=== PATIENT | female | born 1980 | race African-American/Black ===

== ENCOUNTER 2016-07-24 01:53 | Emergency (ER) | payer OTHER ==
[~2016-07-24 01:53] MED LIST: ALBU18HF IH; AMOX500T PO; AZIT500T PO; CYCL-331 PO; LOSA1TAB18 PO; OMEP20TA63 PO; OSEL75CA PO; PHEN100T82 PO; PRED50TA PO; SERT50TA PO; SULF1TAB24 PO; TRAM-48 PO
--- NOTE | 2016-07-24 02:13 | ED.ADGEN ---
Past History Past Medical History: GERD, Other Past Surgical History: Other Smoking: Less than 1pk/day Alcohol Use: Heavy Drug Use: None Adult General Chief Complaint Chief Complaint sore throat, urinary frequency HPI HPI Patient is a 35 year old and [place] female who presents with multiple complaints and she states that she started having a sore throat earlier today, mild headache, so dysuria, and she is worried she might be . She denies any vaginal bleeding or discharge, she denies any hematuria. She denies any neck stiffness. She states she's had a stuffy nose over the last few days. She feels like she's been having a fever on and off. She denies any nuchal rigidity , confusion. She states her throat was bothering her the worse. Review of Systems Review of Systems Constitutional: Denies fever or chills [] Eyes: Denies change in visual acuity, redness, or eye pain [] HENT: Positive for nasal congestion and sore throat [] Respiratory: Denies cough or shortness of breath [] Cardiovascular: No additional information not addressed in HPI [] GI: Denies abdominal pain, nausea, vomiting, bloody stools or diarrhea [] : Denies dysuria or hematuria [] Musculoskeletal: Denies back pain or joint pain [] Integument: Denies rash or skin lesions [] Neurologic: Positive for headache, denies any focal weakness or sensory changes [] Endocrine: Denies polyuria or polydipsia [] Current Medications Current Medications Current Medications Medications (Trade) Dose Ordered Sig/Kalli Start Time Stop Time Status Last Admin Dose Admin Throat Lozenges (Chloraseptic) 1 spray PRN Q2HR PRN 07/24/16 03:30 07/24/16 03:51 DC 07/24/16 03:48 1 SPRAY Tramadol HCl (Starter Pack - Ultram) 1 startpack 1X ONCE 07/24/16 03:00 07/24/16 03:02 DC 07/24/16 03:00 1 STARTPACK Allergies Allergies Allergies Coded Allergies Type Severity Reaction Last Updated Verified ibuprofen Allergy Intermediate 03/01/16 Yes Physical Exam Physical Exam Constitutional: Well developed, well nourished, no acute distress, non-toxic appearance. [] HENT: Normocephalic, atraumatic, bilateral external ears normal, oropharynx moist, no oral exudates, nose normal. [] Eyes: PERRLA, EOMI, conjunctiva normal, no discharge. [] Neck: Normal range of motion, no tenderness, supple, no stridor. [] Cardiovascular:Heart rate regular rhythm, no murmur [] Lungs & Thorax: Bilateral breath sounds clear to auscultation [] Abdomen: Bowel sounds normal, soft, no tenderness, no masses, no pulsatile masses. [] Skin: Warm, dry, no erythema, no rash. [] Back: No tenderness, no CVA tenderness. [] Extremities: No tenderness, no cyanosis, no clubbing, ROM intact, no edema. [] Neurologic: Alert and oriented X 3, normal motor function, normal sensory function, no focal deficits noted. [] Psychologic: Affect normal, judgement normal, mood normal. [] Current Patient Data Vital Signs Vital Signs Date Time Temp Pulse Resp B/P (MAP) Pulse Ox O2 Delivery O2 Flow Rate FiO2 07/24/16 03:30 20 100 Room Air 07/24/16 02:29 98.9 109 Lab Results Laboratory Tests Test 07/24/16 02:00 07/24/16 02:19 07/24/16 02:20 Urine Collection Type Unknown Urine Color Yellow Urine Clarity Clear Urine pH 6.0 Urine Specific [place] 1.025 Urine Protein Trace (NEG-TRACE) Urine Glucose (UA) Neg mg/dL (NEG) Urine Ketones (Stick) Neg mg/dL (NEG) Urine Blood Mod (NEG) Urine Nitrite Neg (NEG) Urine Bilirubin Neg (NEG) Urine Urobilinogen Dipstick 2 mg/dL (0.2 mg/dL) Urine Leukocyte Esterase Trace (NEG) Urine RBC 0 /HPF (0-2) Urine WBC 1-4 /HPF (0-4) Urine Squamous Epithelial Cells Mod /LPF Urine Bacteria Few /HPF (0-FEW) Urine Opiates Screen Neg (NEG) Urine Methadone Screen Neg (NEG) Urine Barbiturates Neg (NEG) Urine Phencyclidine Screen Neg (NEG) Urine Amphetamine/Methamphetamine Neg (NEG) Urine Benzodiazepines Screen Neg (NEG) Urine Cocaine Screen Pos (NEG) Urine Cannabinoids Screen Neg (NEG) Urine Ethyl Alcohol neg (NEG) POC Urine HCG, Qualitative hcg negative (Negative) Group A Streptococcus Rapid Negative (NEGATIVE) EKG EKG [] Radiology/Procedures Radiology/Procedures [] Course & Med Decision Making Course & Med Decision Making Pertinent Labs and Imaging studies reviewed. (See chart for details) Strep throat, UA and previous he test all negative. She does not have a fever or tachycardia. She was given tramadol and chloraseptic spray for her throat. She is instructed return ER if she has neck stiffness, high fevers, confusion, sore throat where she can't swallow, change in her voice, or other concerns. She is agreeable to plan of being discharged in stable condition. Final Impression Final Impression Sore throat Headache Viral syndrome Problems: Dragon Disclaimer Dragon Disclaimer This electronic medical record was generated, in whole or in part, using a voice recognition dictation system. STEFF PAT MD Jul 24, 2016 02:13
[2016-07-24 02:29] VITALS: BP 162/89
[2016-07-24 02:44] LABS: BILIRUBIN,URINE NEG (NEG); CLARITY,URINE CLEAR; COLOR,URINE YELLOW; GLUCOSE,URINE NEG (NEG); NITRITE,URINE NEG (NEG); UROBILINOGEN,URINE 2 mg/dL (0.2 mg/dL)
[2016-07-24 02:45] LABS: BACTERIA,URINE FEW /HPF (0-FEW); RBC,URINE 0 /HPF (0-2); SQUAMOUS EPITHELIAL CELL,UR MOD /LPF
[2016-07-24] MEDS ORDERED: START PACK - traMADol 1 STARTPACK TABLET PO ONE (03:00)
[2016-07-24 03:06] LABS: BARBITURATES NEG (NEG); BENZODIAZEPINES NEG (NEG); CANNABINOIDS NEG (NEG); COCAINE POS (NEG); METHADONE NEG (NEG); OPIATES NEG (NEG); PHENCYCLIDINE NEG (NEG)
[2016-07-24 03:14] LABS: AMPHETAMINE/METHAMPHETAMINE NEG (NEG)
[2016-07-24] MEDS ORDERED: PHENOL ORAL SPRAY 177ML BOTTLE. PO PRN (03:30)
== END 2016-07-24 03:30 | disposition home or self-care (01) ==
LOC: ER 01:53
DX: B34.9 Viral infection, unspecified (principal); K21.9 Gastro-esophageal reflux disease without esophagitis; F17.200 Nicotine dependence, unspecified, uncomplicated; F10.10 Alcohol abuse, uncomplicated; Z88.6 Allergy status to analgesic agent
CPT/HCPCS: 36415; 80305; 80320; 81001; 81025; 87070; 87086; 87880; 99284; G0481

== ENCOUNTER 2016-12-28 17:20 | Emergency (ER) | payer OTHER ==
[~2016-12-28] VITALS: Ht 170.2 cm; Wt 97.5 kg
[~2016-12-28 17:20] MED LIST changes: -LOSA1TAB18 PO; +LOSA1TAB25 PO
[2016-12-28 17:33] VITALS: BP 141/85
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
[2016-12-28] MEDS ORDERED: DOXY100C2 PO (18:50)
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
== END 2016-12-28 18:52 | disposition home or self-care (01) ==
LOC: ER 17:20
DX: G89.18 Other acute postprocedural pain (principal); R07.89 Other chest pain; I10 Essential (primary) hypertension; J90 Pleural effusion, not elsewhere classified; F17.200 Nicotine dependence, unspecified, uncomplicated; Z98.890 Other specified postprocedural states; Z88.6 Allergy status to analgesic agent
CPT/HCPCS: 71020; 99284

== ENCOUNTER 2017-02-13 06:24 | Emergency (ER) | payer OTHER ==
[~2017-02-13] VITALS: Ht 170.2 cm; Wt 97.8 kg
[2017-02-13 06:24] VITALS: BP 122/73
[~2017-02-13 06:24] MED LIST changes: +DOXY100C2 PO
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
== END 2017-02-13 06:45 | disposition home or self-care (01) ==
LOC: ER 06:24
DX: L03.311 Cellulitis of abdominal wall (principal); I10 Essential (primary) hypertension; F17.200 Nicotine dependence, unspecified, uncomplicated
CPT/HCPCS: 99283

== ENCOUNTER 2017-07-09 21:20 | Emergency (ER) | payer OTHER ==
[~2017-07-09] VITALS: Ht 170.2 cm; Wt 106.6 kg
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
[2017-07-09 23:10] LABS: BASO % 0 % (0-3); EOS # 0.1 x10^3/uL (0.0-0.7); EOS % 1 % (0-3); HEMATOCRIT 33.8 % (36.0-47.0); HEMOGLOBIN 10.8 g/dL (12.0-15.5); LYMPH # 3.5 x10^3/uL (1.0-4.8); LYMPH % 36 % (24-48); MEAN CORPUSCULAR HEMOGLOBIN 25 pg (25-35); MEAN CORPUSCULAR HGB CONC 32 g/dL (31-37); MEAN CORPUSCULAR VOLUME 79 fL (79-100); MONO # 0.5 x10^3/uL (0.0-1.1); MONO % 6 % (0-9); NEUT # 5.5 x10^3uL (1.8-7.7); NEUT % 57 % (31-73); PLATELET COUNT 316 x10^3/uL (140-400); RED BLOOD COUNT 4.25 x10^6/uL (3.50-5.40); RED CELL DISTRIBUTION WIDTH 18.3 % (11.5-14.5); WHITE BLOOD COUNT 9.7 x10^3/uL (4.0-11.0)
[2017-07-09 23:24] LABS: ALBUMIN/GLOBULIN RATIO 0.8 (1.0-1.7); CALCIUM 8.1 mg/dL (8.5-10.1); CREATININE 0.9 mg/dL (0.6-1.0); GFR 84.8; POTASSIUM 3.9 mmol/L (3.5-5.1); TOTAL BILIRUBIN 0.4 mg/dL (0.2-1.0); TOTAL PROTEIN 6.9 g/dL (6.4-8.2)
[2017-07-09 23:27] LABS: BACTERIA,URINE 0 /HPF (0-FEW); BILIRUBIN,URINE NEG (NEG); CLARITY,URINE CLEAR; COLOR,URINE YELLOW; GLUCOSE,URINE NEG (NEG); NITRITE,URINE NEG (NEG); RBC,URINE 20-40 /HPF (0-2); SQUAMOUS EPITHELIAL CELL,UR FEW /LPF; UROBILINOGEN,URINE 1 mg/dL (0.2 mg/dL); WBC,URINE OCC /HPF (0-4)
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
[2017-07-09] MEDS ORDERED: HYDR-971 PO (23:44)
[2017-07-10 00:11] VITALS: BP 116/85
== END 2017-07-10 00:14 | disposition home or self-care (01) ==
LOC: ER 21:20
DX: R10.13 Epigastric pain (principal); R10.11 Right upper quadrant pain; R11.2 Nausea with vomiting, unspecified; K21.9 Gastro-esophageal reflux disease without esophagitis; I10 Essential (primary) hypertension; F17.200 Nicotine dependence, unspecified, uncomplicated
CPT/HCPCS: 36415; 74021; 80053; 81001; 85025; 99285-25

== ENCOUNTER 2018-01-05 16:11 | Emergency (ER) | payer OTHER ==
[~2018-01-05] VITALS: Ht 170.2 cm; Wt 40.0 kg
[~2018-01-05 16:11] MED LIST changes: +HYDR-3165 PO
[2018-01-05] MEDS ORDERED: ASPIRIN 81 MG TAB.CHEW ONE (16:17)
[2018-01-05 16:36] VITALS: BP 151/80
[2018-01-05] MEDS ORDERED: ASPIRIN 81 MG TAB.CHEW PO ONE (17:00)
[2018-01-05 17:03] LABS: BASO % 0 % (0-3); EOS # 0.1 x10^3/uL (0.0-0.7); EOS % 1 % (0-3); HEMOGLOBIN 11.9 g/dL (12.0-15.5); LYMPH # 2.8 x10^3/uL (1.0-4.8); LYMPH % 28 % (24-48); MEAN CORPUSCULAR HEMOGLOBIN 24 pg (25-35); MEAN CORPUSCULAR HGB CONC 31 g/dL (31-37); MEAN CORPUSCULAR VOLUME 76 fL (79-100); MONO # 0.7 x10^3/uL (0.0-1.1); MONO % 7 % (0-9); NEUT # 6.4 x10^3uL (1.8-7.7); NEUT % 64 % (31-73); PLATELET COUNT 357 x10^3/uL (140-400); RED BLOOD COUNT 4.99 x10^6/uL (3.50-5.40); RED CELL DISTRIBUTION WIDTH 19.9 % (11.5-14.5); WHITE BLOOD COUNT 10.1 x10^3/uL (4.0-11.0)
[2018-01-05 17:13] LABS: ALBUMIN 3.4 g/dL (3.4-5.0); ALBUMIN/GLOBULIN RATIO 0.8 (1.0-1.7); CALCIUM 8.4 mg/dL (8.5-10.1); CREATININE 0.9 mg/dL (0.6-1.0); GFR 84.3; MAGNESIUM 2.2 mg/dL (1.8-2.4); TOTAL BILIRUBIN 0.7 mg/dL (0.2-1.0); TOTAL PROTEIN 7.9 g/dL (6.4-8.2)
[2018-01-05 17:15] LABS: POTASSIUM 2.9 mmol/L (3.5-5.1)
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
[2018-01-05] MEDS ORDERED: POTASSIUM CHLORIDE 20 MEQ/15 ML ORAL LIQUID. PO ONE (17:30)
[2018-01-05] MEDS ORDERED: CLON0.5T11 PO (17:50)
== END 2018-01-05 18:00 | disposition home or self-care (01) ==
LOC: ER 16:11
DX: R07.89 Other chest pain (principal); E87.6 Hypokalemia; F41.9 Anxiety disorder, unspecified; R25.2 Cramp and spasm; K21.9 Gastro-esophageal reflux disease without esophagitis; I10 Essential (primary) hypertension; F17.200 Nicotine dependence, unspecified, uncomplicated
CPT/HCPCS: 36415; 71045; 80053; 83735; 84484; 85025; 99285

== ENCOUNTER 2019-01-12 16:10 | Emergency (ER) | payer MEDICAID, OTHER ==
[~2019-01-12 16:10] MED LIST changes: -ALBU18HF IH; +ALBU2.5V8 IH; +CLON0.5T4 PO
[2019-01-12] MEDS ORDERED: LIDO15SO2 MM (17:25)
[2019-01-12] MEDS ORDERED: NYST1000 PO (17:25)
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
[2019-01-12] MEDS ORDERED: FLUCONAZOLE 100 MG TABLET. PO ONE (17:30)
[2019-01-12 17:33] VITALS: BP 122/64
== END 2019-01-12 17:38 | disposition home or self-care (01) ==
LOC: ER 16:10
DX: B37.0 Candidal stomatitis (principal); K21.9 Gastro-esophageal reflux disease without esophagitis; I10 Essential (primary) hypertension; F17.200 Nicotine dependence, unspecified, uncomplicated
CPT/HCPCS: 99283

== ENCOUNTER 2019-12-17 11:04 | Emergency (ER) | payer MEDICAID ==
[~2019-12-17] VITALS: Ht 167.6 cm; Wt 113.6 kg
[~2019-12-17 11:04] MED LIST changes: +LIDO20SO10 MM; +NYST1000 PO
[2019-12-17 11:06] VITALS: BP 133/93
[2019-12-17] MEDS ORDERED: AZITHROMYCIN 250 MG TABLET. PO ONE (12:15)
[2019-12-17] MEDS ORDERED: ACETAMINOPHEN 325 MG TABLET PO ONE (12:15)
[2019-12-17] MEDS ORDERED: cefTRIAXone IM 250 MG VIAL IM ONE (12:15)
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
[2019-12-17 12:25] LABS: CLARITY,URINE HAZY; COLOR,URINE YELLOW
[2019-12-17 12:26] LABS: BILIRUBIN,URINE NEG (NEG); GLUCOSE,URINE NEG (NEG)
[2019-12-17 12:27] LABS: BACTERIA,URINE FEW /HPF (0-FEW); NITRITE,URINE NEG (NEG); SQUAMOUS EPITHELIAL CELL,UR MOD /LPF
== END 2019-12-17 12:35 | disposition home or self-care (01) ==
LOC: ER 11:04
DX: Z20.2 Contact with and (suspected) exposure to infections with a predominantly sexual mode of transmission (principal); I10 Essential (primary) hypertension; F17.200 Nicotine dependence, unspecified, uncomplicated
CPT/HCPCS: 36415; 81001; 81025; 87491; 87591; 96372; 99283; J0456; J0696

== ENCOUNTER 2020-04-02 17:09 | Emergency (ER) | payer MEDICAID ==
[~2020-04-02] VITALS: Ht 170.2 cm; Wt 102.2 kg
[2020-04-02] MEDS ORDERED: HYDROcodone/APAP 5/325MG 1 TAB TABLET PO ONE (17:30)
--- NOTE | 2020-04-02 17:37 | RAD ---
Right foot 3 views: Reason for examination: Right foot pain after laptop fell on top of foot. No acute fracture or dislocation is seen. The bone density is normal. No abnormal periosteal reaction is seen. Joint spaces are maintained. There is some soft tissue swelling over the dorsum of the foot . IMPRESSION: Soft tissue swelling on the dorsum of the foot but no acute bony abnormality evident. Electronically signed by: Megan Braun MD (04/02/2020 5:35 PM) MARLA
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
[2020-04-02 18:06] VITALS: BP 153/94
== END 2020-04-02 18:01 | disposition home or self-care (01) ==
LOC: ER 17:09
DX: S90.31XA Contusion of right foot, initial encounter (principal); R60.0 Localized edema; I10 Essential (primary) hypertension; F17.200 Nicotine dependence, unspecified, uncomplicated; W18.39XA Other fall on same level, initial encounter; Y93.89 Activity, other specified; Y92.89 Other specified places as the place of occurrence of the external cause; Y99.8 Other external cause status
CPT/HCPCS: 73630; 99283

== ENCOUNTER 2020-06-01 20:07 | Emergency (ER) | payer MEDICAID ==
[~2020-06-01] VITALS: Ht 170.2 cm; Wt 109.1 kg
[2020-06-01 20:18] VITALS: BP 106/71
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
[2020-06-01] MEDS ORDERED: AZITHROMYCIN 250 MG TABLET. PO ONE (21:15)
[2020-06-01] MEDS ORDERED: ALBUTEROL SULFATE 8GM INHALER. INH ONE (21:15)
[2020-06-01] MEDS ORDERED: IPRATRPIUM/ALBUTEROL 0.5/2.5MG 3 ML NEBU. NEB ONE (21:15)
[2020-06-01] MEDS ORDERED: methylPREDNISolone SOD SUCC PF 125 MG/2 ML VIAL. IV ONE (21:15)
[2020-06-01] MEDS ORDERED: IV RINGERS SOLUTION,LACTATED 1,000 ML IV SCH (21:15)
== END 2020-06-01 21:20 | disposition left against medical advice (07) ==
LOC: ER 20:07
DX: J45.901 Unspecified asthma with (acute) exacerbation (principal); R07.89 Other chest pain; I10 Essential (primary) hypertension; F17.200 Nicotine dependence, unspecified, uncomplicated
CPT/HCPCS: 99281

== ENCOUNTER → 2020-09-15 | Emergency (ER) | payer MEDICAID ==
[~2020-09-15] MED LIST changes: +ACETAMINOPHEN 500 MG TABLET PO ONE; -DOXY100C2 PO; +DOXY100C3 PO
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
== END ==
LOC: ER 03:53
DX: S16.1XXA Strain of muscle, fascia and tendon at neck level, initial encounter (principal); S00.03XA Contusion of scalp, initial encounter; R07.89 Other chest pain; Y08.89XA Assault by other specified means, initial encounter; Y93.89 Activity, other specified; Y92.89 Other specified places as the place of occurrence of the external cause; Y99.8 Other external cause status
CPT/HCPCS: 70450; 71045; 72125; 99285

== ENCOUNTER 2020-12-10 09:56 | Emergency (ER) | payer SELFPAY ==
[~2020-12-10] VITALS: Ht 170.2 cm; Wt 109.1 kg
[~2020-12-10 09:56] MED LIST changes: -ACETAMINOPHEN 500 MG TABLET PO ONE
[2020-12-10] MEDS ORDERED: IV NORMAL SALINE 1,000ML 1,000 ML IV SCH (10:15)
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
[2020-12-10 10:33] LABS: BASO # 0.1 x10^3/uL (0.0-0.2); BASO % 1 % (0-3); EOS # 0.2 x10^3/uL (0.0-0.7); EOS % 2 % (0-3); HEMATOCRIT 39.7 % (36.0-47.0); HEMOGLOBIN 12.6 g/dL (12.0-15.5); LYMPH # 2.7 x10^3/uL (1.0-4.8); LYMPH % 25 % (24-48); MEAN CORPUSCULAR HEMOGLOBIN 27 pg (25-35); MEAN CORPUSCULAR HGB CONC 32 g/dL (31-37); MEAN CORPUSCULAR VOLUME 84 fL (79-100); MONO # 0.7 x10^3/uL (0.0-1.1); MONO % 7 % (0-9); NEUT # 7.1 x10^3uL (1.8-7.7); NEUT % 66 % (31-73); PLATELET COUNT 320 x10^3/uL (140-400); RED BLOOD COUNT 4.74 x10^6/uL (3.50-5.40); WHITE BLOOD COUNT 10.7 x10^3/uL (4.0-11.0)
[2020-12-10 10:45] LABS: CALCIUM 9.6 mg/dL (8.5-10.1); CREATININE 0.8 mg/dL (0.6-1.0); GFR 95.2; POTASSIUM 3.8 mmol/L (3.5-5.1)
[2020-12-10 10:51] LABS: ALBUMIN 3.6 g/dL (3.4-5.0); ALBUMIN/GLOBULIN RATIO 0.9 (1.0-1.7); TOTAL BILIRUBIN 0.7 mg/dL (0.2-1.0); TOTAL PROTEIN 7.7 g/dL (6.4-8.2)
[2020-12-10 12:20] VITALS: BP 105/73
--- NOTE | 2020-12-10 18:41 | EKG ---
[address] [address] Test Date: 2020-12-10 Test Time: 10:00:29 Pat Name: ITALO ROSAS Department: Room: Gender: F Rn Psych: HUEY : 1980 Requested By: BARTOLO MARTINEZ Order Number: [id number] Reading MD: David Moran MD Measurements Intervals Mcmillan Rate: 85 P: 37 VT: 156 QRS: -12 QRSD: 84 T: 14 QT: 376 QTc: 448 Interpretive Statements SINUS RHYTHM Electronically Signed On 12-13-2020 11:19:56 CDT by David Moran MD
== END 2020-12-10 12:20 | disposition home or self-care (01) ==
LOC: ER 09:56
DX: R00.2 Palpitations (principal); J45.909 Unspecified asthma, uncomplicated; I10 Essential (primary) hypertension; F17.200 Nicotine dependence, unspecified, uncomplicated
CPT/HCPCS: 36415; 71045; 80053; 84484; 85025; 85379; 93005; 96360; 96361; 99285; J7030

== ENCOUNTER 2021-06-22 12:51 | Emergency (ER) | payer MEDICAID ==
[~2021-06-22] VITALS: Ht 170.2 cm; Wt 118.0 kg
[~2021-06-22 12:51] MED LIST changes: -CYCL-331 PO; +CYCL10TA19 PO
[2021-06-22 12:55] VITALS: BP 110/70
[2021-06-22] MEDS ORDERED: ACETAMINOPHEN/CODEINE 300/30MG TABLET PO ONE (14:00)
[2021-06-22] MEDS ORDERED: AMOXICILLIN/K CLAV 875/125MG TABLET. PO ONE (14:00)
[2021-06-22] MEDS ORDERED: AMOX1TAB11 PO (14:02)
[2021-06-22] MEDS ORDERED: ACET1TAB56 PO (14:02)
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
== END 2021-06-22 14:20 | disposition home or self-care (01) ==
LOC: ER 12:51
DX: K02.9 Dental caries, unspecified (principal); K04.7 Periapical abscess without sinus; J45.909 Unspecified asthma, uncomplicated; I10 Essential (primary) hypertension; F17.200 Nicotine dependence, unspecified, uncomplicated
CPT/HCPCS: 99283